=== PATIENT | female | born 1930 | race Caucasian/White ===

== ENCOUNTER 2017-02-09 00:31 | Inpatient (IN) | payer MEDICARE ==
[~2017-02-09] VITALS: Ht 165.1 cm; Wt 69.9 kg
--- NOTE | 2017-02-09 00:50 | NUR ---
86 FEMALE BB RA. PT STATES SHE WAS TRYING TO KILL A PLASCENCIA, WHEN SHE HAD A GLF. PT DS TO ER BED BY EMS. 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 SKIN WARM AND DRY, RR EVEN AND UNLABORED. PT LEFT LOWER LEG IS SHORTENED AND EXTERNALY ROTATED. AWAITING ORDERS FROM PROVIDER, WLL CONTINUE TO MONITOR
--- NOTE | 2017-02-09 01:00 | NUR ---
20G LEFT AC IV STARTED, BLOOD SAMPLE OBTAINED AND SENT TO LAB
--- NOTE | 2017-02-09 01:12 | NUR ---
MEDICATED PT ORDERED
[2017-02-09 01:26] LABS: BASOPHILS % (AUTO) 0.3 % (0.0-2.0); EOSINOPHILS # (AUTO) 0.4 /CMM (0.0-0.7); EOSINOPHILS % (AUTO) 3.9 % (0.0-6.0); HEMATOCRIT 35 % (33-45); HEMOGLOBIN 11.5 g/dL (11.5-14.8); LYMPHOCYTES # (AUTO) 1.5 /CMM (0.8-4.8); LYMPHOCYTES % (AUTO) 14.3 % (20.0-44.0); MEAN CORPUSCULAR HEMOGLOBIN 29 PG (26.0-33.0); MEAN CORPUSCULAR HGB CONC 33 g/dl (31.0-36.0); MEAN CORPUSCULAR VOLUME 89 fL (82-100); MONOCYTES # (AUTO) 0.7 /CMM (0.1-1.30); MONOCYTES % (AUTO) 6.9 % (2.0-12.0); NEUTROPHILS # (AUTO) 7.8 /CMM (1.8-8.9); NEUTROPHILS % (AUTO) 74.6 % (43.0-81.0); PLATELET COUNT (AUTO) 237 /CMM (150-450); RDW COEFFICIENT OF VARIATION 13.9 (11.5-15.0); RED BLOOD CELL COUNT(AUTO) 3.94 MIL/uL (4.0-5.2); WHITE BLOOD COUNT (AUTO) 10.4 K/uL (4.3-11.0)
[2017-02-09 01:37] LABS: CALCIUM, SERUM 9.9 mg/dL (8.5-10.1); CARBON DIOXIDE 24 mmol/L (21-32); CHLORIDE 104 mmol/L (98-107); GLUCOSE 194 mg/dL (74-106); POTASSIUM 4.5 mmol/L (3.5-5.1); SODIUM SERUM 138 mmol/L (136-145); UREA NITROGEN, BLOOD 15 mg/dL (7-18)
[2017-02-09 01:38] LABS: INR 0.95 (0.87-1.13); PROTHROMBIN TIME 9.9 SECS (9.5-12.7)
[2017-02-09 01:45] LABS: ALANINE AMINOTRANSFERASE 22 U/L (12-78); ALBUMIN 3.7 g/dL (3.4-5.0); ALKALINE PHOSPHATASE 58 U/L (46-116); ASPARTATE AMINOTRANSFERASE 17 U/L (15-37); BILIRUBIN,TOTAL 0.3 mg/dL (0.2-1.0); TOTAL PROTEIN, SERUM 7.5 g/dL (6.4-8.2)
[2017-02-09] MEDS ORDERED: LISI-603 PO (02:35)
[2017-02-09] MEDS ORDERED: SIMV20TA6 PO (02:35)
[2017-02-09] MEDS ORDERED: METF10002 PO (02:35)
[2017-02-09] MEDS ORDERED: METO-302 PO (02:35)
[2017-02-09] MEDS ORDERED: ASPI81TA93 PO (02:35)
--- NOTE | 2017-02-09 03:03 | NUR ---
MS 112.2
--- NOTE | 2017-02-09 03:21 | NUR ---
REPORT GIVEN TO MS KAMI FOR YANG
--- NOTE | 2017-02-09 03:29 | NUR ---
TRANSPORTED PT TO [facility] BED WITHOUT INCIDENT
[2017-02-09 03:39] VITALS: BP 193/73
--- NOTE | 2017-02-09 04:00 | NUR ---
MS RN NOTE ADMITTED PT 86 YEARS OLD FEMALE FROM ER WITH THE DX OF LT FEMUR NECK FRACTURE BY DR MESSINA. A/O X 3, PT IS C/O PAIN IN LT HIP. DILAUDID 1 MG IVP GIVEN. ALSO LOVENOX GIVEN ORDERED. SKIN INTACT. LT LEG I SHORT AND EXTERNALLY ROTATED. PT DON'T WANT TO BE MOVED AT ALL. SL IN LAC INTACT AND PATENT. ORIENTED THE PT TO HER ROOM. ALSO ADMITTING ORDERS CHECKED. SON AT BED SIDE. SIDE RAILS UP X 3 AND CALL LIGHT WITHIN REACH. B/P IS HIGH DUE TO PAIN. CONTINUE TO MONITOR HER.
--- NOTE | 2017-02-09 04:36 | NUR ---
MS RN NOTE PAIN SUBSIDED 06/19. CONTINUE T0 MONITOR HER.
[2017-02-09 05:00] VITALS: BP 155/70
--- NOTE | 2017-02-09 06:35 | NUR ---
MS RN NOTE PT IN BED ASLEEP, AROUSABLE. NO DISTRESS OR DISCOMFORT NOTED. PT TOLERATING PAIN WELL, REFUSING TO TAKE ANY PAIN MEDS AT THIS TIME. HL IN LAC INTACT AND PATENT. SON AT BED SIDE. SIDE RAILS UP X 2 AND CALL LIGHT WITHIN REACH. WILL ENDORSE TO DAY SHIFT NURSE FOR CONTINUE TO CARE.
--- NOTE | 2017-02-09 07:19 | NUR ---
RN NOTES RECEIVED PT ON BED, A/Ox4, RESPIRATION TIMOTHY AND UNLABORED, ON 2L O2 N/C, NO SOB NOTED , C/O L HIP PAIN 8/, MEDICATED WITH 2MG MORPHINE IV PER MED ORDER ,SR UP x3, CALL LIGHT WITHIN EASY REACH, BED LOCKED AND IN LOWEST POSITION , SUPPORTIVE SON AT THE BEDSIDE, CONTINUE PAIN MANAGEMENT AND NOTIFY MD FOR ANY SIGNIFICANT CHANGES .
[2017-02-09 08:00] VITALS: BP_SYST 138; BP_SYST 139; BP_DIAS 47; BP_DIAS 52
--- NOTE | 2017-02-09 08:00 | NUR ---
RN NOTES PT REFUSED INSULIN COVERAGE AND TO EAT BREAKFAST AND STATED TAKES 0900 AM MEDS AT NIGHT. DR PEREZ NOTIFIED.
--- NOTE | 2017-02-09 10:53 | NUR ---
FF. UP WITH KANIKA CERRATO AND ORDERED TO KEEP PT. NPO.
[2017-02-09 14:44] LABS: APPEARANCE,URINE SL CLOUDY (CLEAR); BILIRUBIN,URINE NEGATIVE (NEGATIVE); BLOOD, URINE NEGATIVE Ery/uL (NEGATIVE); COLOR,URINE YELLOW (YELLOW); KETONES,URINE NEGATIVE (NEGATIVE); LEUKOCYTE ESTERASE ,URINE NEGATIVE (NEGATIVE); NITRITE, URINE NEGATIVE (NEGATIVE); PH,URINE 5.5 (5.0-8.0); PROTEIN,URINE NEGATIVE (NEGATIVE); UGLUCOSE NEGATIVE (NEGATIVE); UROBILINOGEN,URINE 0.2 EU/dL (0.2)
[2017-02-09 16:00] VITALS: BP 107/46
--- NOTE | 2017-02-09 18:11 | NUR ---
RN NOTES SUPPORTIVE FAMILY AT THE BEDSIDE, IVF NS AT 60CC/HR RUNNING VIA L AC IV SITE , USED BEDPAN TO VOID . C/O LEFT HIP PAIN WHEN TURNS IN BED, CONTINUE PAIN MANAGEMENT . AWAITING TO BE TRANSFER TO [facility] FOR L HIP SURGERY .
--- NOTE | 2017-02-09 18:14 | NUR ---
RN NOTES NO BED IS AVAILABLE AT [facility] YET , PT SIGNED AMA FORM TO LEAVE TO [facility] AMA .AMBULANCE ARRANGED BY CASE MANAGEMENT TO TRANSFER THE PT TO [facility] . DR PEREZ NOTIFIED. EXPLAINED TO PT AND THE SON THE RISK OF NOT FOLLOWING THE PLAN OF CARE . PT AND HIS SON STILL REFUSED TO STAY TILL BED BECOME AVAILABLE AT [facility] .
--- NOTE | 2017-02-09 19:15 | NUR ---
RN NOTES AMBULANCE ON THE FLOOR , REPORT GIVEN TO EMT PERSONAL, EXPLAINED TO PT THE RISKS OF LEAVING AMA , PT STILL REFUSED TO STAY, VSS STABLE AT THIS TIME , REPORT GIVEN TO MARANDA MCCLURE FOR YANG.
--- NOTE | 2017-02-09 19:52 | NUR ---
RN NOTE; PT LEFT ON AMA ACCOMPANIED BY AMBULANCE . (ALL ARRANGEMENTS WERE DONE BY PREVIOUS SHIFT NURSE ). FAMILY MEMBERS AT THE BED SIDE , ABLE TO UNDERSTAND DISEASE PROCESS AND TREATMENT PLAN, RISK /BENEFITS EXPLAINED X 3 , STILL REFUSED TO STAY . SON VERBALIZED THAT THEY TAKING PT TO [facility] ER SINCE THEY HAVE BEEN WAITING FOR BED BUT COULD NOT GET . IV SITE REMOVED, BELONGINGS CHECKED OUT . PT IS IN STABLE CONDITION AT THE TIME OF LEAVING .
--- NOTE | 2017-02-09 23:00 | NUR ---
INCIDENT REPORT DONE ; ID [id number]
== END 2017-02-09 19:50 | disposition left against medical advice (07) | DRG 536 ==
LOC: ER 00:33 → MEDSG1 03:25
DX: S72.002A Fracture of unspecified part of neck of left femur, initial encounter for closed fracture (principal); E11.9 Type 2 diabetes mellitus without complications; I10 Essential (primary) hypertension; E78.5 Hyperlipidemia, unspecified; Z79.899 Other long term (current) drug therapy; Z90.49 Acquired absence of other specified parts of digestive tract; W01.0XXA Fall on same level from slipping, tripping and stumbling without subsequent striking against object, initial encounter; Y93.89 Activity, other specified; Y92.009 Unspecified place in unspecified non-institutional (private) residence as the place of occurrence of the external cause
CPT/HCPCS: 36415; 71010-TC; 73502; 73564-TC; 80048-TC; 80076-TC; 81000-TC; 82962-TC; 85025-TC; 85730-TC; 86850-TC; 87081-TC; 93307-TC; A4606; J1170; J1650; J1815; J2270; J2405; J7030; Z7610